=== PATIENT | female | born 1960 | race African-American/Black ===

== ENCOUNTER 2024-03-01 14:44 | Emergency (ER) | payer SELFPAY ==
[~2024-03-01] VITALS: Ht 162.6 cm; Wt 91.0 kg
[~2024-03-01 14:44] MED LIST: APIX2.5T MT; DEXA4TAB PO; FAMO-135 PO; IPRA3AMP9 NEB; LEVO-65 MT
[2024-03-01 14:55] VITALS: O2SAT 95
[2024-03-01 17:30] LABS: BASOPHILS % 1.1 % (0.0-2.0); EOSINOPHILS % 1.5 % (0.0-5.0); HEMATOCRIT. 38.8 % (36.0-48.0); HEMOGLOBIN. 12.8 g/dL (12.0-16.0); LYMPHOCYTES % 28.5 % (20.0-50.0); MEAN PLATELET VOLUME 8.1 fl (7.4-10.4); MONOCYTES % 11.5 % (2.0-8.0); NEUTROPHILS % 57.4 % (40.0-76.0); PLATELET 213 x1000/uL (130-400); RED BLOOD CELL COUNT 4.26 mill/uL (4.2-5.4); RED CELL DISTRIBUTION WIDTH 13.1 % (11.6-14.6); WHITE BLOOD COUNT 3.5 x1000/uL (4.5-11.0)
[2024-03-01 17:40] LABS: CARBON DIOXIDE 26 mEq/L (21-32); CHLORIDE 103 mEq/L (98-107); POTASSIUM 3.3 mEq/L (3.5-5.1); SODIUM 137 mEq/L (136-145)
[2024-03-01 17:41] LABS: CALCIUM 9.8 mg/dL (8.7-10.4)
[2024-03-01 17:46] LABS: CREATININE 0.7 mg/dL (0.6-1.0); GLUCOSE 96 mg/dL (70-105); TROPONIN I HIGH SENSITIVITY 6 ng/L (3.0-34)
[2024-03-01 17:47] LABS: UREA NITROGEN BLOOD < 5 mg/dL (9-23)
[2024-03-01] MEDS ORDERED: AMOX1TAB16 MT (18:33)
[2024-03-01 19:35] VITALS: BP 138/82; PULSE 90; RESP 16; TEMP 98.1
== END 2024-03-01 19:45 | disposition home or self-care (01) ==
LOC: ER 14:44
DX: J18.8 Other pneumonia, unspecified organism (principal); R07.9 Chest pain, unspecified
CPT/HCPCS: 36415; 71045; 80048; 83605; 83880; 84145; 84484; 85025; 93005; 99285